=== PATIENT | male | born 1985 | race Caucasian/White ===

== ENCOUNTER 2016-06-12 13:12 | Emergency (ER) | payer OTHER ==
--- NOTE | 2016-06-12 13:29 | ERPHSYRPT ---
- History of Present Illness Time Seen by Provider: 06/12/16 13:19 Source: patient Exam Limitations: no limitations Patient Subjective Stated Complaint: PT REPORTS FEVER BEGINNING SUNDAY- REPORTS INTERMITTANT LIGHT COUGH-DENIES N/V/D-DENIES PAIN Triage Nursing Assessment: PT PINK WARM ET DRY-A & O X 3-RESP EASY ET NONLABORED -NO COUGH NOTED DURING TRIAGE Physician History: This is a 30-year-old white male with history of cerebral palsy he arrives with complaint of fever and intermittent cough symptoms going on for 2-3 days. Patient denies any vomiting diarrhea , He states he is not otherwise ill Past medical history includes cerebral palsy Timing/Duration: day(s) (2-3 days) Modifying Factors: Improves With: acetaminophen Associated Symptoms: cough, fever, No nausea, No vomiting, No abdominal pain, No shortness of breath, No heartburn, No diaphoresis, No chills, No chest pain, No headaches, No loss of appetite, No malaise, No rash, No syncope, No seizure, No weakness Allergies/Adverse Reactions: No Known Drug Allergies Allergy (Unverified 06/12/16 13:17) Home Medications: No Home Meds 1 [facility] UD 06/12/16 [History] Hx Tetanus, Diphtheria Vaccination/Date Given: Yes Hx Influenza Vaccination/Date Given: No Hx Pneumococcal Vaccination/Date Given: No Immunizations Up to Date: Yes - Review of Systems Constitutional: Fever, No Chills, No Fatigue, No Lethargy, No Malaise, No Night Sweats, No Weakness, No Weight Loss Eyes: No Symptoms Ears, Nose, & Throat: No Symptoms, Nose Congestion, No Ear Pain, No Ear Discharge, No Hearing Changes, No Tinnitus, No Nose Pain, No Nose Discharge, No Sinus Drainage, No Epistaxis, No Mouth Pain, No Mouth Swelling, No Loose Teeth, No Throat Pain, No Throat Swelling, No Hoarse, No Painful Swallowing Respiratory: Cough, No Cyanosis, No Dyspnea, No Dyspnea on Exertion (PADILLA), No Stridor, No Wheezing Cardiac: No Chest Pain, No Edema, No Syncope Abdominal/Gastrointestinal: No Abdominal Pain, No Nausea, No Vomiting, No Diarrhea Genitourinary Symptoms: No Dysuria Musculoskeletal: No Back Pain, No Neck Pain Skin: No Rash Neurological: No Dizziness, No Focal Weakness, No Sensory Changes Psychological: No Symptoms Endocrine: No Symptoms All Other Systems: Reviewed and Negative - Past Medical History Pertinent Past Medical History: No - Past Surgical History Past Surgical History: Yes Musculoskeletal: Orthopedic Surgery - Social History Smoking Status: Never smoker Exposure to second hand smoke: No Drug Use: none Patient Lives Alone: No - Nursing Vital Signs Nursing Vital Signs: Initial Vital Signs Temperature 98.4 F Temperature Source Oral Pulse Rate 120 Respiratory Rate 22 Pain Intensity 0 - Physical Exam General Appearance: no apparent distress, alert Eye Exam: PERRL/EOMI, eyes nml inspection Ears, Nose, Throat Exam: normal ENT inspection, TMs normal, pharynx normal, moist mucous membranes Neck Exam: normal inspection, non-tender, supple, full range of motion Respiratory Exam: normal breath sounds, lungs clear, No respiratory distress Cardiovascular Exam: regular rate/rhythm, tachycardia, No murmur Gastrointestinal/Abdomen Exam: soft, normal bowel sounds, No tenderness, No mass Back Exam: normal inspection, normal range of motion, No CVA tenderness, No vertebral tenderness Extremity Exam: normal inspection, normal range of motion, pelvis stable Neurologic Exam: alert, oriented x 3, cooperative, normal mood/affect, nml cerebellar function, nml station & gait, sensation nml, No motor deficits Skin Exam: normal color, warm, dry, No rash Lymphatic Exam: No adenopathy SpO2 Interpretation: normal (96%) SpO2: 96 Oxygen Delivery: Room Air - Course Nursing assessment & vital signs reviewed: Yes - Radiology Exams Chest X-ray Interpretation: Discussed w/ radiologist (chest x-ray: Underinflated Will by basilar infiltrates/atelectasis left greater than right consolidation or large effusion heart and bony thorax unremarkable) Ordered Tests: Active Orders 24 hr Category Date Time Status CHEST 1 VIEW (PORTABLE) Stat Exams 06/12/16 13:24 Completed CULTURE, THROAT Stat Lab 06/12/16 13:35 Received STREP SCREEN-BETA A Stat Lab 06/12/16 13:35 Completed Lab/Rad Data: Laboratory Results 06/12/16 06/12/16 Range/Units 13:35 13:35 Streptococcus Screen NEGATIVE (Negative) Resp Infection Panel NEGATIVE (Negative) - Progress Progress: improved Progress Note: 06/12/16 14:50 Patient's chest x-ray shows and under fluoroscopy inflated chest with bibasilar infiltrates/atelectasis left greater than right. Will go ahead and give patient Rocephin 1 g IM plan to discharge with Zithromax. Patient will need to follow-up with his local family doctor or list will be provided - Departure Time of Disposition: 14:50 Departure Disposition: Home Clinical Impression: fever at home Pneumonia Qualifiers: Pneumonia type: due to unspecified organism Laterality: bilateral Lung location : unspecified part of lung Qualified Code(s): J18.9 - Pneumonia, unspecified organism Condition: Fair Critical Care Time: No Additional Instructions: Return home. Zithromax Z-JACKELIN as directed. Tylenol every 4 hours as needed for temperature greater than 100.5. Plenty of fluids. Follow-up with your family doctor (list) return for acute distress or for severe symptoms. . Prescriptions: Azithromycin 250 mg [Zithromax 250 MG TABLET] 0 mg PO ZPACK #6 tablet
--- NOTE | 2016-06-12 13:42 | XRAY ---
Indication: Fever Comparison: None Portable chest underinflated with bibasilar infiltrates/atelectasis, left greater than right. No consolidation or large effusion. Heart and bony thorax unremarkable.
[2016-06-12] MEDS ORDERED: Rocephin 1000 MG INJ IM ONE (14:49)
[2016-06-12] MEDS ORDERED: Rocephin 1000 MG INJ ONE (14:52)
[2016-06-12] MEDS ORDERED: XYLOCAINE 1% HCL 20 ML MDV ONE (14:53)
[2016-06-12 15:17] VITALS: BP 129/70; PULSE 113; O2SAT 98
== END 2016-06-12 15:16 | disposition home or self-care (01) ==
LOC: ED 13:12
DX: J18.9 Pneumonia, unspecified organism (principal); R50.9 Fever, unspecified; G80.9 Cerebral palsy, unspecified; R05 Cough
CPT/HCPCS: 71010; 87070; 87430; 87631; 96372; 99282; J0696